=== PATIENT | female | born 1940 | race Hispanic/Latino ===

== ENCOUNTER 2018-06-27 22:20 | Emergency (ER) | payer MEDICARE, OTHER ==
[2018-06-27 23:44] VITALS: BP 150/71
[2018-06-28 02:35] LABS: Basophils % (Auto) 0.2 % (0.0-1.8); Calcium 8.8 mg/dL (8.4-10.2); Eosinophils # (Auto) 0.2 K/mm3 (0.0-0.4); Eosinophils % (Auto) 1.6 % (0.0-4.3); Hematocrit 32.3 % (30.3-42.9); Hemoglobin 10.9 gm/dl (10.1-14.3); Lymphocytes # (Auto) 1.3 K/mm3 (1.2-5.4); Lymphocytes % (Auto) 13.9 % (13.4-35.0); Mean Corpuscular HGB Conc 34 % (30-34); Mean Corpuscular Hemoglobin 32 pg (28-32); Mean Corpuscular Volume 95 fl (79-97); Monocytes # (Auto) 0.8 K/mm3 (0.0-0.8); Monocytes % (Auto) 8.9 % (0.0-7.3); Platelet Count 148 K/mm3 (140-440); Red Blood Count 3.42 M/mm3 (3.65-5.03); Red Cell Distribution Width 13.8 % (13.2-15.2)
[2018-06-28] MEDS ORDERED: CLEOCIN 600 MG/50 mL 600 MG/50 ML BAG IV ONE (04:05)
[2018-06-28] MEDS ORDERED: NACL 0.9% 1000 ML 1,000 ML IV ONE (04:05)
[2018-06-28] MEDS ORDERED: ZOFRAN IV ONE (04:10)
[2018-06-28] MEDS ORDERED: MORPHINE IV ONE (04:10)
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
== END 2018-06-28 06:43 | disposition home or self-care (01) ==
LOC: ED 22:20
DX: K04.7 Periapical abscess without sinus (principal); E86.0 Dehydration; E11.9 Type 2 diabetes mellitus without complications; M19.90 Unspecified osteoarthritis, unspecified site; J44.9 Chronic obstructive pulmonary disease, unspecified; Z88.0 Allergy status to penicillin; Z91.013 Allergy to seafood
CPT/HCPCS: 36415; 80048; 85025; 96365; 96375; 99283; J2270; J2405; J7030